=== PATIENT | female | born 1990 | race Caucasian/White ===

== ENCOUNTER → 2018-02-10 18:46 | Outpatient (CLI) | payer OTHER, SELFPAY ==
[2018-02-13 15:36] LABS: HPV Reflexed? NOT INDICATED
== END ==
PROVIDERS: Visit Provider Obstetrics & Gynecology
DX: Z12.4 Encounter for screening for malignant neoplasm of cervix (principal)
CPT/HCPCS: 88175; G0145

== ENCOUNTER → 2019-02-11 | Outpatient (CLI) | payer OTHER, SELFPAY ==
[2019-02-11 17:32] LABS: Free T3 2.9 pg/mL (2.18-3.98); T4 Free Direct 0.88 ng/dL (0.76-1.46); Thyroid Stim Hormone (TSH) 1.61 uIU/mL (0.358-3.74)
[2019-02-16 16:30] LABS: HPV Reflexed? NOT INDICATED
== END | disposition home or self-care (01) ==
LOC: WOBLAB 14:21
PROVIDERS: Visit Provider Obstetrics & Gynecology
DX: R63.5 Abnormal weight gain (principal); Z12.4 Encounter for screening for malignant neoplasm of cervix
CPT/HCPCS: 36415; 84439; 84443; 84481; 87624; 88175; G0145

== ENCOUNTER → 2023-06-09 | Outpatient (CLI) | payer BC, OTHER, SELFPAY ==
--- NOTE | 2023-06-09 15:47 | RAD_ITS ---
STUDY: X-RAY - ABDOMEN/PELVIS REASON FOR EXAM: Female, 32 years old. Kidney stones. Follow-up. TECHNIQUE: Single AP view of the abdomen / pelvis on 3 images. COMPARISON: None. FINDINGS: Normal visualized lung bases. Normal bowel gas pattern. No disproportionate dilatation. Moderate amount of feces in the colon obscuring most of the right renal outline. Small calcifications projected over the lower pole of the left kidney. Normal soft tissue structures. Normal visualized osseous structures. RAD/Abdomen Single View IMPRESSION: Moderate amount of feces obscuring the right renal outline. To small less than 3 mm in diameter calcifications projected over the lower pole of the left kidney. No acute finding. Electronically Signed: Keith Sidhu MD at 12:23 EST ,
== END | disposition home or self-care (01) ==
PROVIDERS: PCP Student in an Organized Health Care Education/Training Program; Referring Provider Urology; Visit Provider Urology
DX: N20.0 Calculus of kidney (principal)
CPT/HCPCS: 74018

== ENCOUNTER 2023-06-19 07:40 | Day surgery (SDC) | payer BC, OTHER, SELFPAY ==
[2023-06-19] MEDS: Lactated Ringers 1,000 ML 15 ML IV (08:08)
[2023-06-19 08:11] VITALS: BP 139/77; PULSE 100; RESP 18; TEMP 36.1; O2SAT 100; BMI 45.9
[2023-06-19 08:16] LABS: Internal QC Validated? YES +Cl - CLEAR BKGD; Pregnancy, Urine Negative Negative; Record Kit Lot#,Urine Preg HCG0000667200
[2023-06-19] MEDS: Cefazolin 2 GM in 0.9% Normal Saline (100mL Bag) 100 ML IV (09:12)
--- NOTE | 2023-06-19 09:16 | DCINST_ITS ---
Discharge Instructions Diet Discharge Diet: No restrictions Activity Discharge Activity: Return to Normal Activity Dressing / Incision Call your doctor if you observe: Fever of 101 or Higher, Inability to urinate and Inability to have a bowel movement Follow Up Care Please Follow Up With: Anna Brown MD When: the office will call the patient to make arrangements for follow up Test Results: Test results from this visit will be discussed in further detail at your follow- up appointment, if applicable. Discharge Plan Admission Attending Provider: Anna Brown Primary Care Provider: Juanjo Woods Discharge Orders/Prescriptions Prescriptions: New ondansetron HCl [ondansetron HCl] 8 mg tablet 8 mg PO Q8H PRN PRN (Reason: Nausea) 7 Days Qty: 20 0RF oxycodone-acetaminophen [Percocet] 5-325 mg tablet 1 tab PO Q8H PRN (Reason: pain) 3 Days Qty: 10 0RF cephalexin [cephalexin] 500 mg capsule 500 mg PO Q12 3 Days Qty: 6 0RF phenazopyridine [Pyridium] 200 mg tablet 200 mg PO TID PRN PRN (Reason: Bladder Spasms) 7 Days Qty: 30 1RF Continued Complete Multivitamin Tablet 1 tab PO DAILY ORTHO TRI-CLYEN 1 tab PO DAILY cholecalciferol (vitamin D3) 1,250 mcg (50,000 unit) capsule 1,250 mcg PO DAILY magnesium 30 mg tablet 30 mg PO DAILY sertraline [Zoloft] 100 mg tablet 100 mg PO DAILY cranberry 400 mg capsule 400 mg PO DAILY Rx Instructions: administer with a meal Referrals / Follow Up: Juanjo Woods DO [Primary Care Provider] - Disposition Disposition (needs filled in before D/C Order can be placed): Home, Self Care
--- NOTE | 2023-06-19 09:19 | PCM.OPRPT ---
Report of Operation Date of Procedure: 06/19/23 Pre-Operative Diagnosis: left renal stones Post-Operative Diagnosis: same Surgery/Procedure Performed:: cystoscopy with left ureteral stent insertion, left renal extracorporeal shockwave lithotripsy Surgeon: Anna Brown Type of Anesthesia: General Specimen's removed: none Description of Procedure: The patient is a 32-year-old female who presented to the office with left flank pain and was found to have left renal stones visible on KUB. Informed consent was obtained and she now presents for definitive surgical intervention. The patient was taken to the operating room and placed on the operating room table. Anesthesia monitored the head, neck, airway, IV access and vital signs throughout the case. Once anesthesia was appropriately ministered, the patient was placed in the dorsolithotomy position was prepped and draped in usual sterile fashion. The cystoscope was inserted through the urethra under direct visualization into the urinary bladder. The bladder mucosa as well as the urethra were found to be within normal limits with no evidence of mass, erythema, ulceration or foreign body. A 0.035 Glidewire was inserted through the left ureteral orifice and easily advanced into the renal pelvis and it was followed by placement of a 4.5 x 26 cm JJ stent. There is good positioning in the renal pelvis as well as urinary bladder. Her bladder was then emptied and the cystoscope was removed. She was repositioned on the table. Her left renal stones were easily visualized and 3000 shocks were applied to the stones which appeared to be well fragmented at the conclusion of the case. She was then awakened and taken to the recovery room in good condition. There were no complications during this procedure. Grafts/Implants Used: 4.5Fr x 26cm JJ stent Complications none Admit VTE Documentation VTE Present on Admission: Yes VTE Mechan Device Prophylaxis: SCD's VTE Pharm Prophylaxis ordered?: No Reason prophylaxis not ordered:: Treatment Not Indicated
[2023-06-19 10:35] VITALS: BP 127/56; BP 139/77; PULSE 86; RESP 18; TEMP 36.2; O2SAT 96
[2023-06-19 10:40] VITALS: BP 120/70; BP 139/77; PULSE 77; RESP 18; O2SAT 93
[2023-06-19 10:45] VITALS: BP 119/69; BP 139/77; PULSE 78; RESP 16; O2SAT 95
[2023-06-19 10:50] VITALS: BP 120/68; BP 139/77; PULSE 78; RESP 18; TEMP 36.1; O2SAT 94
[2023-06-19 12:06] VITALS: BP 139/77
== END 2023-06-19 12:08 | disposition home or self-care (01) ==
LOC: SDC 07:42 → AC 07:45
PROVIDERS: Anesthesiology; PCP Student in an Organized Health Care Education/Training Program; Referring Provider Urology; Visit Provider Urology
PROC: (CPT 50590; principal; 2023-06-19 08:50)
DX: N20.0 Calculus of kidney (principal)
CPT/HCPCS: 50590; 52332; 00873; 81025; J7120; J2405

== ENCOUNTER → 2023-07-04 | Outpatient (CLI) | payer BC, OTHER, SELFPAY ==
--- NOTE | 2023-07-04 09:13 | RAD_ITS ---
INDICATION: KUB- KIDNEY STONES EXAMINATION/TECHNIQUE: X-RAY - XR Abdomen 1 View COMPARISON: 06/09/2023 FINDINGS: BOWEL GAS PATTERN: Non-obstructive. No bowel or stomach distention. FREE AIR: Not assessed on a single supine view. ORGANOMEGALY: Not seen. CALCIFICATIONS: No abnormal calcifications observed, there is obscuring bowel gas.. LEFT ureteral stent projects in normal position. LOWER CHEST: No acute pathology. BONES AND SOFT TISSUES: No acute pathology. RAD/Abdomen Single View IMPRESSION: 1. Obscuring bowel gas, no distinct calcifications noted. 2. LEFT ureteral stent is in normal position. 3. No evidence of bowel obstruction. Electronically Signed: Flo Bravo MD at 21:23 EST ,
== END | disposition home or self-care (01) ==
LOC: MTRAD 09:12
PROVIDERS: PCP Student in an Organized Health Care Education/Training Program; Referring Provider Urology; Visit Provider Urology
DX: N20.0 Calculus of kidney (principal)
CPT/HCPCS: 74018

== ENCOUNTER → 2024-05-03 | Outpatient (CLI) | payer BC, OTHER, SELFPAY ==
--- OUTSIDE RECORDS SUMMARY | 2024-05-03 08:47 | XMS RPT_ITS | CCD ---
Author Organization [facility] Care Team Providers Care Tax Accountant Name Role Phone Cynthia Hughesneha Unavailable Unavailable ROMAR DO, DR ANDERSEN Primary Care Physician [phone] ROMAR DO, DR ANDERSEN Primary Care Unavailable STEVE MURRY, POOL Nguyen Attending Unavailable ROMAR DO, DR ANDERSEN Primary Care Unavailable STEVE MURRY, POOL Nguyen Attending Unavailable ROMAR DO, DR ANDERSEN Primary Care Unavailable FLORENCE BAND BOOKER-MOVEMENT ASSEMBLER, MICAH Ambrose Attending Sacha lable ROMAR DO, DR ADNERSEN Primary Care Unavailable CARISA DO, DR FOOTE Attending Unavailable ROMAR DO, DR ANDERSEN Primary Care Unavailable CARISA DO, DR FOOTE Attending Unavailable ROMAR DO, DR ANDERSEN Primary Care Unavailable STEVE MURRY, POOL Nguyen Attending Unavailable ROMAR DO, DR ANDERSEN Primary Care Unavailable STEVE MURRY, POOL Nguyen Attending Unavailable STEVE MURRY, POOL Nguyen Attending Unavailable ROMAR DO, DR ANDERSEN Primary Care Unavailable ROMAR DO, DR ANDERSEN Primary Care Unavailable STEVE MURRY, POOL A Attending Unavailable STEVE MURRY, POOL Nguyen Attending Unavailable ROMAR DO, DR ANDERSEN Primary Care Unavailable ROMAR DO, DR ANDERSEN Attending Unavailable ROMAR DO, DR ANDERSEN Primary Care Unavailable STEVE MURRY, POOL Nguyen Attending Unavailable ROMAR DO, DR ANDERSEN Primary Care Unavailable Allergies Allergy Classification Reported Allergen(s) Allergy Type Date of Onset Reaction(s) Facility (6 sources) Codeine; Translations: [codeine] Drug Allergy Unknown [facility] Comment on above: hyperactivity (6 sources) Minocycline; Translations: [minocycline] Drug Allergy Abdominal pain (finding) [facility] Medications Current Medications Medication Drug Class(es) Dates Sig (Normalized) Sig (Original) amylase 781105 unt / lipase 25139 unt / protease [id number] unt delayed release oral capsule (1 source) Start: 04-19-2023 Zenpep 40,000 units-126,000 units-168,000 units oral delayed release capsule take 2 capsules by mouth three times a day before meals and 1 capsule BEFORE SNACKS Start Date: 04/19/23 Status: Ordered ferrous gluconate 324 mg oral tablet (1 source) Start: 12-10-2023 End: 02-08-2024 ferrous gluconate 324 mg (38 mg elemental iron) oral tablet Dose : 324 mg = 1 tab(s), Oral, Every other day, X 30 day(s), # 15 tab(s), 1 Refill(s), 02/08/24 3:49:00 PM EDT, [facility]acy: [facility] #[id number], 165.1, cm, 12/10/23 15:08:00 EDT, Height, kg, 12/10/23 15:08:00 EDT, Dosing Weight Start Date: 12/10/23 Stop Date: 02/08/24 Status: Ordered ferrous sulfate 325 mg oral tablet (1 source) Start: 08-11-2023 End: 12-09-2023 IRON (ferrous sulfate 325 mg) 65 mg oral tablet Dose : 325 mg = 1 tab(s), Oral, Every other day, Take with Vitamin C tablet or orange juice., # 15 tab(s), 3 Refill(s), [facility]acy: [facility] #[id number], 165.1, cm, 08/11/23 8:24:00 EST, Height, kg, 08/11/23 8:24:00 EST, Dosing Weight Start Date: 08/11/23 Stop Date: 12/09/23 Status: Ordered magnesium oxide 250 mg oral tablet (4 sources) Start: 08-11-2023 Magnesium 250 mg tablet Dose : 250 mg = 1 tab(s), Oral, qDay, 0 Refill(s) Start Date: 08/11/23 Status: Ordered Multivitamin preparation (4 sources) Start: 08-11-2023 take 1 tablet by mouth once daily Multivitamin Dose = 1 tab(s), Oral, Daily, 0 Refill(s) Start Date: 08/11/23 Status: Ordered sertraline 100 mg oral tablet (6 sources) Serotonin Reuptake Inhibitor Start: 11-28-2023 End: 06-15-2024 sertraline 100 mg oral tablet Dose : 100 mg = 1 tab(s), Oral, qDay, # 100 tab(s), 1 Refill(s), [facility]: [facility] #[id number], 163.8, cm, 11/28/23 16:36:00 EDT, Height, kg, 11/28/23 16:36:00 EDT, Dosing Weight Start Date: 11/28/23 Stop Date: 06/15/24 Status: Ordered Start: 04-24-2023 End: 10-21-2023 sertraline 100 mg oral table t Dose : 100 mg = 1 tab(s), Oral, qDay, # 90 tab(s), 1 Refill(s), Pharmacy: [facility] #[id number], 165.3, cm, 04/24/23 8:00:00 EDT, Height, kg, 04/24/23 8:00:00 EDT, Dosing Weight Start Date: 04/24/23 Stop Date: 10/21/23 Status: Ordered Start: 10-24-2022 End: 04-22-2023 sertraline 100 mg oral table t Dose : 100 mg = 1 tab(s), Oral, qDay, # 90 tab(s), 1 Refill(s), Pharmacy: [facility] #[id number], 165, cm, 10/24/22 7:55:00 EDT, Height, kg, 10/24/22 7:55:00 EDT, Dosing Weight Start Date: 10/24/22 Stop Date: 04/22/23 Status: Ordered Completed/Discontinued Medications Medication Drug Class(es) Dates Sig (Normalized) Sig (Original) {21 (Desogestrel 0.15 MG / Ethinyl Estradiol 0.03 MG Oral Tablet) / 7 (Inert Ingredients 1 MG Oral Tablet) } Pack [Enskyce 28 Day] (6 sources) Progestin, Estrogen Start: 03-19-2022 take 1 tablet by mouth once daily Enskyce 0.15 mg-0.03 mg oral tablet Dose = 1 tab(s), Oral, qDay, # 28 tab(s), 0 Refill(s) Start Date: 03/19/22 Status: Ordered eluxadoline 75 mg oral tablet (3 sources) mu-Opioid Receptor Agonist Start: 11-03-2023 Viberzi 75 mg oral tablet Dose : 75 mg = 1 tab(s), Oral, BID, 0 Refill(s), 125.1 Start Date: 11/03/23 Status: Ordered Vitamin B12 1000 mcg oral tablet (4 sources) Start: 08-11-2023 End: 12-09-2023 Vitamin B12 1000 mcg oral tablet Dose : 2,000 mcg = 2 tab(s), Oral, qDay, # 60 tab(s), 3 Refill(s), Pharmacy: [facility] #[id number], 165.1, cm, 08/11/23 8:24:00 EST, Height, kg, 08/11/23 8:24:00 EST, Dosing Weight Start Date: 08/11/23 Stop Date: 12/09/23 Status: Ordered Problems Active Problems Problem Classification Problem Date Documented Date Episodic/Chronic Anxiety disorders (12 sources) Generalized anxiety disorder; Translations: [Panic attack] 06-01-2020 Chronic Cardiac dysrhythmias (6 sources) Palpitations 01-17-2021 Episodic Contraceptive and procreative management (6 sources) Contraception 09-13-2021 Episodic Deficiency and other anemia (6 sources) Microcytic anemia 10-24-2022 Episodic Deficiency and other anemia (6 sources) Normocytic anemia 06-06-2021 Episodic Deficiency and other anemia (1 source) Anemia; Translations: [Anemia, unspecified] Onset: 12-10-19 Episodic Diseases of white blood cells (8 sources) Leukocytosis; Translations: [Elevated white blood cell count, unspecified] Onset: 08-11-1906-06-2021 Chronic Disorders of lipid metabolism (6 sources) Hypertriglyceridemia 10-24-2022 Chronic Heart valve disorders (6 sources) Mitral valve prolapse 01-17-2021 Chronic Other gastrointestinal disorders (8 sources) Irritable bowel syndrome; Translations: [Irritable bowel syndrome without diarrhea] Onset: 08-11-1912-29-2019 Chronic Other lower respiratory disease (6 sources) H/O: asthma 12-29-2019 Episodic Comment on above: per record review Other nutritional; endocrine; and metabolic disorders (6 sources) Body mass index 40+ - severely obese 12-12-2020 Chronic Other skin disorders (5 sources) Skin tag 05-15-2023 Episodic Other upper respiratory disease (6 sources) Allergic rhinitis 12-29-2019 Chronic Cristina-; endo-; and myocarditis; cardiomyopathy (except that caused by tuberculosis or sexually transmitted disease) (6 sources) Ejection murmur 12-12-2020 Chronic Screening and history of mental health and substance abuse codes (6 sources) H/O: depression 12-29-2019 Episodic Comment on above: per record review Thyroid disorders (6 sources) Goiter 12-12-2020 Chronic Unclassified (1 source) Unknown / UNK(Unknown) Onset: 01-31-20 18 Past or Other Problems Problem Classification Problem Date Documented Date Episodic/Chronic Genitourinary symptoms and ill-defined conditions (2 sources) Unspecified symptoms and signs involving the genitourinary system; Translations: [Unspecified symptoms and signs involving the genitourinary system] Onset: 04-19-2023 Episodic Unclassified (1 source) URINARY BURNING,PRESSURE Onset: 01-30-2018 Results Test Name Value Interpretation Reference Range Facility .Auto Diffon 03-19-2024 Basophil, Absolute 0.1 10 3/mcL Normal 0.0-0.2 [facility] Comment on above: Performed By: #### A ISAIAS, ADIFF, FERR, CBC, FES #### [address] [address] #### B12 #### [address] [address] Basophils/100 WBC (Bld) 0.5 % Normal 0.0-2.5 [facility] Comment on above: Performed By: #### A ISAIAS, ADIFF, FERR, CBC, FES #### [address] [address] #### B12 #### [address] [address] Eosinophil, Absolute 0.3 10 3/mcL Normal 0.0-0.4 [facility] Comment on above: Performed By: #### A ISAIAS, ADIFF, FERR, CBC, FES #### [address] [address] #### B12 #### [address] [address] Eosinophils/100 WBC (Bld) 2.6 % Normal 0.0-7.0 [facility] Comment on above: Performed By: #### A ISAIAS, ADIFF, FERR, CBC, FES #### [address] [address] #### B12 #### [address] [address] Lymphocyte, Absolute 3.5 10 3/mcL Normal 0.8-3.9 [facility] Comment on above: Performed By: #### A ISAIAS, ADIFF, FERR, CBC, FES #### [place] [address] #### B12 #### [address] [address] Lymphocytes/100 WBC (Bld) 32.5 % Normal 10.0-50.0 [facility] Comment on above: Performed By: #### A ISAIAS, ADIFF, FERR, CBC, FES #### [place] [address] #### B12 #### [address] [address] Monocyte, Absolute 0.8 10 3/mcL Normal 0.2-1.0 [facility] Comment on above: Performed By: #### A ISAIAS, ADIFF, FERR, CBC, FES #### [place] [address] #### B12 #### [address] [address] Monocytes/100 WBC (Bld) 7.2 % Normal 1.7-13.0 [facility] Comment on above: Performed By: #### A ISAIAS, ADIFF, FERR, CBC, FES #### [place] [address] #### B12 #### [address] [address] Neutrophils/100 WBC (Bld) 57.2 % Normal 37.0-80.0 [facility] Comment on above: Performed By: #### A ISAIAS, ADIFF, FERR, CBC, FES #### [place] [address] [place], [place] [address] #### B12 #### [address] [address] .GFRon 03-19-2024 GFR Non- 104 ml/min/1.73sqm Normal [facility] Comment on above: Result Comment: GFR Population mean for , Non- Americans Ages 20-29 = 116 mL/min/1.73 sq.m. Ages 30-39 = 107 mL/min/1.73 sq.m. Ages 40-49 = 99 mL/min/1.73 sq.m. Ages 50-59 = 93 mL/min/1.73 sq.m. Ages 60-69 = 85 mL/min/1.73 sq.m. Ages 70+ = 75 mL/min/1.73 sq.m. Chronic Kidney Disease: Less than 60 mL/min/1.73 square meters End Stage Renal Disease: Less than 15 mL/min/1.73 square meters Performed By: #### L IPID, GFR, CMP #### [address] [address] GFR 126 ml/min/1.73sqm Normal [facility] Comment on above: Result Comment: GFR Population mean for , Non- Americans Ages 20-29 = 116 mL/min/1.73 sq.m. Ages 30-39 = 107 mL/min/1.73 sq.m. Ages 40-49 = 99 mL/min/1.73 sq.m. Ages 50-59 = 93 mL/min/1.73 sq.m. Ages 60-69 = 85 mL/min/1.73 sq.m. Ages 70+ = 75 mL/min/1.73 sq.m. Chronic Kidney Disease: Less than 60 mL/min/1.73 square meters End Stage Renal Disease: Less than 15 mL/min/1.73 square meters Performed By: #### L IPID, GFR, CMP #### [place] [id number] [place], [place] [address] .NEUABSon 03-19-2024 Neutrophil, Absolute 6.2 10 3/mcL Normal 2.9-6.2 [facility] Comment on above: Performed By: #### A ISAIAS, ADIFF, FERR, CBC, FES #### [address] [address] #### B12 #### [address] [address] B12on 03-19-2024 Cobalamin (Vitamin B12) [Mass/Vol] 265 pg/mL Normal 211-911 [facility] Comment on above: Performed By: #### A ISAIAS, ADIFF, FERR, CBC, FES #### [place] [address] #### B12 #### [place] [address] CBCon 03-19-2024 Erythrocyte distribution width (RBC) [Ratio] 15.6 % High 11.5-14.5 [facility] Comment on above: Performed By: #### A ISAIAS, ADIFF, FERR, CBC, FES #### [place] [address] #### B12 #### [place] [address] Hematocrit (Bld) [Volume fraction] 33.7 % Low 37.0-47.0 [facility] Comment on above: Performed By: #### A ISAIAS, ADIFF, FERR, CBC, FES #### [place] [address] #### B12 #### [place] [address] Hgb 11.2 G/dL Low 12.0-16.0 [facility] Comment on above: Performed By: #### A ISAIAS, ADIFF, FERR, CBC, FES #### [place] [address] #### B12 #### [place] [address] MCH (RBC) [Entitic mass] 27.6 pg Normal 27.0-31.2 [facility] Comment on above: Performed By: #### A ISAIAS, ADIFF, FERR, CBC, FES #### [place] [address] #### B12 #### [place] [address] MCHC 33.2 G/dL Normal 33.0-37.0 [facility] Comment on above: Performed By: #### A ISAIAS, ADIFF, FERR, CBC, FES #### [place] [address] #### B12 #### [place] [address] MCV (RBC) [Entitic vol] 83.2 fL Normal 80.0-94.0 [facility] Comment on above: Performed By: #### A ISAIAS, ADIFF, FERR, CBC, FES #### [place] [address] #### B12 #### [place] [address] Platelet 284 10 3/mcL Normal 130-400 [facility] Comment on above: Performed By: #### A ISAIAS, ADIFF, FERR, CBC, FES #### [place] [address] #### B12 #### [place] [address] Platelet mean volume (Bld) [Entitic vol] 8.6 fL Normal 7.4-10.4 [facility] Comment on above: Performed By: #### A ISAIAS, ADIFF, FERR, CBC, FES #### [place] [address] #### B12 #### [place] [address] RBC 4.05 10 6/mcL Low 4.20-5.40 [facility] Comment on above: Performed By: #### A ISAIAS, ADIFF, FERR, CBC, FES #### [place] [address] #### B12 #### [address] [address] WBC 10.8 10 3/mcL Normal 4.6-10.8 [facility] Comment on above: Performed By: #### A ISAIAS, SIDNEY, FERR, CBC, FES #### [address] [address] #### B12 #### [address] [address] CMPon 03-19-2024 Albumin Level 3.0 G/dL Low 3.5-5.0 [facility] Comment on above: Performed By: #### L IPID, GFR, CMP #### [address] [address] Albumin/Globulin [Mass ratio] 1.1 {ratio} Normal 1.1-2.5 [facility] Comment on above: Performed By: #### L IPID, GFR, CMP #### [place] [id number] ALP [Catalytic activity/Vol] 66 U/L Normal 40-135 [facility] Comment on above: Performed By: #### L IPID, GFR, CMP #### [place] [address] ALT [Catalytic activity/Vol] 18 U/L Normal 14-59 [facility] Comment on above: Performed By: #### L IPID, GFR, CMP #### [address] [address] AST [Catalytic activity/Vol] 10 U/L Normal 10-40 [facility] Comment on above: Performed By: #### L IPID, GFR, CMP #### [address] [address] Bili Total 0.2 mg/dL Normal 0.2-1.0 [facility] Comment on above: Result Comment: Use of this assay is not recommended for patients undergoing treatment with eltrombopag due to the potential for falsely elevated results. Performed By: #### L IPID, GFR, CMP #### [place] [id number] BUN/Creatinine Ratio 11 ratio Normal 7-27 [facility] Comment on above: Performed By: #### L IPID, GFR, CMP #### [place] [address] Calcium [Mass/Vol] 8.7 mg/dL Normal 8.4-10.2 [facility] Comment on above: Performed By: #### L IPID, GFR, CMP #### [place] [address] Chloride [Moles/Vol] 103 mmol/L Normal 98-107 [facility] Comment on above: Performed By: #### L IPID, GFR, CMP #### [place] [address] CO2 [Moles/Vol] 25 mmol/L Normal 22-29 [facility] Comment on above: Performed By: #### L IPID, GFR, CMP #### [place] [address] Creatinine [Mass/Vol] 0.65 mg/dL Normal 0.55-1.02 [facility] Comment on above: Result Comment: Test ing performed on Siemens Dimension EXL analyzer using a modified kinetic Kathya technique. Performed By: #### L IPID, GFR, CMP #### [place] [address] Electrolyte Balance 10.0 mEq/L Normal 4.0-15.0 [facility] Comment on above: Performed By: #### L IPID, GFR, CMP #### [place] [address] Globulin 2.8 G/dL Normal [facility] Comment on above: Performed By: #### L IPID, GFR, CMP #### [place] [address] Glucose [Mass/Vol] 110 mg/dL High 70-105 [facility] Comment on above: Performed By: #### L IPID, GFR, CMP #### [address] [address] Potassium [Moles/Vol] 4.4 mmol/L Normal 3.5-5.1 [facility] Comment on above: Performed By: #### L IPID, GFR, CMP #### [address] [address] Sodium [Moles/Vol] 138 mmol/L Normal 136-145 [facility] Comment on above: Performed By: #### L IPID, GFR, CMP #### [address] [address] Total Protein 5.8 G/dL Low 6.4-8.2 [facility] Comment on above: Performed By: #### L IPID, GFR, CMP #### [address] [address] Urea nitrogen [Mass/Vol] 7 mg/dL Normal 7-18 [facility] Comment on above: Performed By: #### L IPID, GFR, CMP #### [address] [address] Kale 03-19-2024 Ferritin [Mass/Vol] 40.0 ng/mL Normal 8.0-252.0 [facility] Comment on above: Performed By: #### A ISAIAS, ADIFF, FERR, CBC, FES #### [address] [address] #### B12 #### [address] [address] FESon 03-19-2024 Iron [Mass/Vol] 43 ug/dL Low 50-170 [facility] Comment on above: Performed By: #### A ISAIAS, ADIFF, FERR, CBC, FES #### [address] [address] #### B12 #### [address] [address] Iron Sat 12 % Normal [facility] Comment on above: Performed By: #### A ISAIAS, ADIFF, FERR, CBC, FES #### [address] [address] #### B12 #### [address] [address] TIBC 368 mcg/dL Normal 250-450 [facility] Comment on above: Performed By: #### A ISAIAS, ADIFF, FERR, CBC, FES #### [address] [address] #### B12 #### [address] [address] LABORATORYOrdered By: SYSTEM SYSTEM on 03-19-2024 Albumin BCP dye [Mass/Vol] 3.0 G/dL Low 3.5 - 5.0 G/dL AO ADM SS Albumin/Globulin [Mass ratio] 1.1 {ratio} Normal 1.1 - 2.5 ratio AO ADM SS ALP [Catalytic activity/Vol] 66 U/L Normal 40 - 135 U/L AO ADM SS ALT With P-5'-P [Catalytic activity/Vol] 18 U/L Normal 14 - 59 U/L AO ADM SS AST With P-5'-P [Catalytic activity/Vol] 10 U/L Normal 10 - 40 U/L AO ADM SS Basophils (Bld) [#/Vol] 0.1 103/mcL Normal 0.0 - 0.2 10^3/mcL AO Workflow SS Basophils/100 WBC (Bld) 0.5 % Normal 0.0 - 2.5 % AO Workflow SS Bilirubin [Mass/Vol] 0.2 mg/dL Normal 0.2 - 1 .0 mg/dL AO ADM SS Comment on above: Interpretive Data: U se of this assay is not recommended for patients undergoing treatment with eltrombopag due to the potential for falsely elevated results. Calcium [Mass/Vol] 8.7 mg/dL Normal 8.4 - 10. 2 mg/dL AO ADM SS Chloride [Moles/Vol] 103 mmol/L Normal 98 - 10 7 mmol/L AO ADM SS CO2 [Moles/Vol] 25 mmol/L Normal 22 - 29 mmol/L AO ADM SS Cobalamin (Vitamin B12) [Mass/Vol] 265 pg/mL Normal 211 - 911 pg/mL AH ADM SS Creatinine [Mass/Vol] 0.65 mg/dL Normal 0.55 - 1.02 mg/dL AO ADM SS Comment on above: Interpretive Data: T esting performed on Siemens Dimension EXL analyzer using a modified kinetic Kathya technique. Electrolyte Balance 10.0 mEq/L Normal 4.0 - 15 .0 mEq/L AO ADM SS Eosinophil, Absolute 0.3 103/mcL Normal 0.0 - 0 .4 10^3/mcL AO Workflow SS Eosinophils/100 WBC (Bld) 2.6 % Normal 0.0 - 7.0 % AO Workflow SS Erythrocyte distribution width (RBC) [Ratio] 15.6 % High 11.5 - 14.5 % AO Workflow SS Ferritin [Mass/Vol] 40.0 ng/mL Normal 8.0 - 25 2.0 ng/mL AO ADM SS GFR/1.73 sq M.predicted among blacks MDRD (S/P/Bld) [Vol rate/Area] 126 ml/min/1.73sqm Invalid Interpretation Code AO Chemistry S Comment on above: Interpretive Data: GFR Population mean for , Non- Americans Ages 20-29 = 116 mL/min/1.73 sq.m. Ages 30-39 = 107 mL/min/1.73 sq.m. Ages 40-49 = 99 mL/min/1.73 sq.m. Ages 50-59 = 93 mL/min/1.73 sq.m. Ages 60-69 = 85 mL/min/1.73 sq.m. Ages 70+ = 75 mL/min/1.73 sq.m. Chronic Kidney Disease: Less than 60 mL/min/1.73 square meters End Stage Renal Disease: Less than 15 mL/min/1.73 square meters GFR/1.73 sq M.predicted among non-blacks MDRD (S/P/Bld) [Vol rate/Area] 104 ml/min/1.73sqm Invalid Interpretation Code AO Chemistry S Comment on above: Interpretive Data: GFR Population mean for , Non- Americans Ages 20-29 = 116 mL/min/1.73 sq.m. Ages 30-39 = 107 mL/min/1.73 sq.m. Ages 40-49 = 99 mL/min/1.73 sq.m. Ages 50-59 = 93 mL/min/1.73 sq.m. Ages 60-69 = 85 mL/min/1.73 sq.m. Ages 70+ = 75 mL/min/1.73 sq.m. Chronic Kidney Disease: Less than 60 mL/min/1.73 square meters End Stage Renal Disease: Less than 15 mL/min/1.73 square meters Globulin 2.8 G/dL Invalid Interpretation Code AO ADM SS Glucose [Mass/Vol] 110 mg/dL High 70 - 105 mg/dL AO ADM SS Hematocrit (Bld) [Volume fraction] 33.7 % Low 37.0 - 47.0 % AO Workflow SS Hemoglobin (Bld) [Mass/Vol] 11.2 G/dL Low 12.0 - 16.0 G/dL AO Workflow SS Iron [Mass/Vol] 43 ug/dL Low 50 - 170 mcg/dL AO ADM SS Iron binding capacity [Mass/Vol] 368 mcg/dL Normal 250 - 450 mcg/dL AO ADM SS Iron Sat 12 % Invalid Interpretation Code AO ADM SS Lymphocytes (Bld) [#/Vol] 3.5 103/mcL Normal 0.8 - 3.9 10^3/mcL AO Workflow SS Lymphocytes/100 WBC (Bld) 32.5 % Normal 10.0 - 50.0 % AO Workflow SS MCH (RBC) [Entitic mass] 27.6 pg Normal 27.0 - 31.2 pg AO Workflow SS MCHC 33.2 G/dL Normal 33.0 - 37.0 G/dL AO Workflow SS MCV (RBC) [Entitic vol] 83.2 fL Normal 80.0 - 94.0 fL AO Workflow SS Monocytes (Bld) [#/Vol] 0.8 103/mcL Normal 0.2 - 1.0 10^3/mcL AO Workflow SS Monocytes/100 WBC (Bld) 7.2 % Normal 1.7 - 13.0 % AO Workflow SS Neutrophils (Bld) [#/Vol] 6.2 103/mcL Normal 2.9 - 6.2 10^3/mcL AO Workflow SS Neutrophils/100 WBC (Bld) 57.2 % Normal 37.0 - 80.0 % AO Workflow SS Platelet mean volume (Bld) [Entitic vol] 8.6 fL Normal 7.4 - 10.4 fL AO Workflow SS Platelets (Bld) [#/Vol] 284 103/mcL Normal 130 - 400 10^3/mcL AO Workflow SS Potassium [Moles/Vol] 4.4 mmol/L Normal 3.5 - 5.1 mmol/L AO ADM SS Protein [Mass/Vol] 5.8 G/dL Low 6.4 - 8.2 G/dL AO ADM SS RBC (Bld) [#/Vol] 4.05 106/mcL Low 4.20 - 5.4 0 10^6/mcL AO Workflow SS Sodium [Moles/Vol] 138 mmol/L Normal 136 - 145 mmol/L AO ADM SS Urea nitrogen [Mass/Vol] 7 mg/dL Normal 7 - 18 mg/dL AO ADM SS Urea nitrogen/Creatinine [Mass ratio] 11 ratio Normal 7 - 27 ratio AO ADM SS WBC (Bld) [#/Vol] 10.8 103/mcL Normal 4.6 - 10.8 10^3/mcL AO Workflow SS LABORATORYOrdered By: Terri Mcmullen on 03-19-2024 Cholesterol [Mass/Vol] 118 mg/dL Normal 0 - 200 mg/dL AO ADM SS Comment on above: Interpretive Data: C holesterol Reference Interval: Less than 200 Desirable 200-239 Borderline high risk 240 and above High risk Cholesterol in HDL [Mass/Vol] 46 mg/dL Normal 40 - 60 mg/dL AO ADM SS Cholesterol in LDL [Mass/Vol] 49 mg/dL Normal 0 - 130 mg/dL AO ADM SS Triglyceride [Mass/Vol] 117 mg/dL Normal 0 - 150 mg/dL AO ADM SS Comment on above: Interpretive Data: T riglyceride Reference Interval: Less than 150 Normal 150-199 Borderline high risk 200-499 High risk 500 or higher Very high risk LIPIDon 03-19-2024 Cholesterol [Mass/Vol] 118 mg/dL Normal 0-200 [facility] Comment on above: Result Comment: Chol esterol Reference Interval: Less than 200 Desirable 200-239 Borderline high risk 240 and above High risk Performed By: #### L IPID, GFR, CMP #### [address] [address] Cholesterol in HDL [Mass/Vol] 46 mg/dL Normal 40-60 [facility] Comment on above: Performed By: #### L IPID, GFR, CMP #### [place] [id number] [place], [place] [address] Cholesterol in LDL [Mass/Vol] 49 mg/dL Normal 0-130 [facility] Comment on above: Performed By: #### L IPID, GFR, CMP #### [facility] [address] [place], [place] [address] Triglyceride [Mass/Vol] 117 mg/dL Normal 0-150 [facility] Comment on above: Result Comment: Trig lyceride Reference Interval: Less than 150 Normal 150-199 Borderline high risk 200-499 High risk 500 or higher Very high risk Performed By: #### L IPID, GFR, CMP #### [facility] [address] [place], [place] [address] Final Flow Cytometry Reporto n 12-11-2023 Final Flow Cytometry Report . Pathology Reports Accession: Collected Date/Time: Received Date/Time: Pathologist: [id number] 12/10/2023 16:17 EDT 12/11/2023 09:46 EDT MD ANTONELLA CAMACHO Final Flow Cytometry Report INTERPRETATION: NO ABNORMAL LYMPHOID OR MYELOID POPULATION SEEN. FLOW CYTOMETRIC ANALYSIS IS NONDIAGNOSTIC. FLOW CYTOMETRY ANALYSIS PHENOTYPE: Phenotype: There is a mixed population of myeloid cells (66% of total) and T and B-cells. B-cells (5% of total) are polytypic and T-cells account for 29%. TEST RESULTS: sKappa B CELLS sLambda B CELLS HLA-DR LEUKOCYTES CD5 T CELLS CD10 LYMPHOCYTES CD11c MONOCYTES CD13 MYELOID CELLS CD14 MONOCYTES CD15 MYELOID CELLS CD19 B-CELLS CD33 MYELOID CELLS CD34 BLAST CELLS CD45 LEUKOCYTES CD64 MYELOID CELLS CD117 MYELOID CELLS CLINICAL DATA: ELEVATED WHITE BLOOD CELL COUNT, IRON DEFICIENCY ANEMIA SPECIMEN DESCRIPTION: PERIPHERAL WHOLE BLOOD NA Heparin Tube PATH PROF CPT: 88493 Testing performed by MM DISCLAIMER: This test was developed and its performance approved by [facility]. It has not been cleared or approved by the U.S. Food and Drug Administration. The FDA has determined that such clearance or approval is not necessary. This test is used for clinical purposes. It should not be regarded as investigational or for research. This laboratory is certified under the Clinical Laboratory Improvement Amendments of 1998 (CLIA-88) as qualified to perform high complexity clinical laboratory testing. Electronically Signed by Pathology Report verified by [facility] ANTONELLA CAMACHO MD Sign out Date: 12/11/2023 11:23 Performing Lab: [facility], [address] [place] [address] Pathology Dept Normal [facility] ([place]) .Auto Diffon 11-28-2023 Basophil, Absolute 0.1 10 3/mcL Normal 0.0-0.2 [facility] ([place]) Comment on above: Performed By: #### B 12, FES, FERR, FOL #### [address] [address] Basophils/100 WBC (Bld) 0.6 % Normal 0.0-2.5 [facility] ([place]) Comment on above: Performed By: #### B 12, FES, FERR, FOL #### [address] [address] Eosinophil, Absolute 0.3 10 3/mcL Normal 0.0-0.4 [facility] ([place]) Comment on above: Performed By: #### B 12, FES, FERR, FOL #### [address] [address] Eosinophils/100 WBC (Bld) 2.2 % Normal 0.0-7.0 [facility] ([place]) Comment on above: Performed By: #### B 12, FES, FERR, FOL #### [address] [address] Lymphocyte, Absolute 5.2 10 3/mcL High 0.8-3.9 [facility] ([place]) Comment on above: Performed By: #### B 12, FES, FERR, FOL #### [address] [address] Lymphocytes/100 WBC (Bld) 37.7 % Normal 10.0-50.0 [facility] ([place]) Comment on above: Performed By: #### B 12, FES, FERR, FOL #### [address] [address] Monocyte, Absolute 0.9 10 3/mcL Normal 0.2-1.0 [facility] ([place]) Comment on above: Performed By: #### B 12, FES, FERR, FOL #### [address] [address] Monocytes/100 WBC (Bld) 6.5 % Normal 1.7-13.0 [facility] ([place]) Comment on above: Performed By: #### B 12, FES, FERR, FOL #### [place] [id number] Neutrophils/100 WBC (Bld) 53.0 % Normal 37.0-80.0 [facility] ([place]) Comment on above: Performed By: #### B 12, FES, FERR, FOL #### [place] [address] .NEUABSon 11-28-2023 Neutrophil, Absolute 7.3 10 3/mcL High 2.9-6.2 [facility] ([place]) Comment on above: Performed By: #### B 12, FES, FERR, FOL #### [place] [address] B12on 11-28-2023 Cobalamin (Vitamin B12) [Mass/Vol] 362 pg/mL Normal 211-911 [facility] ([place]) Comment on above: Performed By: #### B 12, FES, FERR, FOL #### [place] [address] CBCon 11-28-2023 Erythrocyte distribution width (RBC) [Ratio] 16.1 % High 11.5-14.5 [facility] ([place]) Comment on above: Performed By: #### B 12, FES, FERR, FOL #### [place] [address] Hematocrit (Bld) [Volume fraction] 35.0 % Low 37.0-47.0 [facility] ([place]) Comment on above: Performed By: #### B 12, FES, FERR, FOL #### [place] [address] Hgb 12.0 G/dL Normal 12.0-16.0 [facility] ([place]) Comment on above: Performed By: #### B 12, FES, FERR, FOL #### [place] [address] MCH (RBC) [Entitic mass] 27.4 pg Normal 27.0-31.2 [facility] ([place]) Comment on above: Performed By: #### B 12, FES, FERR, FOL #### [place] [address] MCHC 34.3 G/dL Normal 33.0-37.0 [facility] ([place]) Comment on above: Performed By: #### B 12, FES, FERR, FOL #### [place] [address] MCV (RBC) [Entitic vol] 79.9 fL Low 80.0-94.0 [facility] ([place]) Comment on above: Performed By: #### B 12, FES, FERR, FOL #### [place] [address] Platelet 327 10 3/mcL Normal 130-400 [facility] ([place]) Comment on above: Performed By: #### B 12, FES, FERR, FOL #### [place] [address] Platelet mean volume (Bld) [Entitic vol] 8.6 fL Normal 7.4-10.4 [facility] ([place]) Comment on above: Performed By: #### B 12, FES, FERR, FOL #### [place] [address] RBC 4.38 10 6/mcL Normal 4.20-5.40 [facility] ([place]) Comment on above: Performed By: #### B 12, FES, FERR, FOL #### [place] [address] WBC 13.8 10 3/mcL High 4.6-10.8 [facility] ([place]) Comment on above: Performed By: #### B 12, FES, FERR, FOL #### [place] [address] Kale 11-28-2023 Ferritin [Mass/Vol] 44.0 ng/mL Normal 8.0-252.0 [facility] ([place]) Comment on above: Performed By: #### B 12, FES, FERR, FOL #### [place] [address] FESon 11-28-2023 Iron [Mass/Vol] 37 ug/dL Low 50-170 [facility] ([place]) Comment on above: Performed By: #### B 12, FES, FERR, FOL #### [place] [address] Iron Sat 9 % Normal [facility] ([place]) Comment on above: Performed By: #### B 12, FES, FERR, FOL #### [place] [address] TIBC 417 mcg/dL Normal 250-450 [facility] ([place]) Comment on above: Performed By: #### B 12, FES, FERR, FOL #### [place] [address] B12on 08-11-2023 Cobalamin (Vitamin B12) [Mass/Vol] 194 pg/mL Low 211-911 [facility] ([place]) Comment on above: Performed By: #### B 12, FES, FERR, FOL #### [place] [address] Kale 08-11-2023 Ferritin [Mass/Vol] 23.2 ng/mL Normal 8.0-252.0 [facility] ([place]) Comment on above: Performed By: #### B 12, FES, FERR, FOL #### [place] [address] FESon 08-11-2023 Iron [Mass/Vol] 46 ug/dL Low 50-170 [facility] ([place]) Comment on above: Performed By: #### B 12, FES, FERR, FOL #### [place] [address] Iron Sat 12 % Normal [facility] ([place]) Comment on above: Performed By: #### B 12, FES, FERR, FOL #### [place] [address] TIBC 391 mcg/dL Normal 250-500 [facility] ([place]) Comment on above: Performed By: #### B 12, FES, FERR, FOL #### [place] [address] FOLon 08-11-2023 Folate 19.92 ng/mL Normal 5.38-24.00 [facility] ([place]) Comment on above: Performed By: #### B 12, FES, FERR, FOL #### [address] [address] LABORATORYOrdered By: SYSTEM SYSTEM on 08-11-2023 Cobalamin (Vitamin B12) [Mass/Vol] 194 pg/mL Low 211 - 911 pg/mL [facility] Ferritin [Mass/Vol] 23.2 ng/mL Normal 8.0 - 25 2.0 ng/mL ADM SS Folate [Mass/Vol] 19.92 ng/mL Normal 5.38 - 24. 00 ng/mL [facility] SS Iron [Mass/Vol] 46 ug/dL Low 50 - 170 mcg/dL [facility] SS Iron binding capacity [Mass/Vol] 391 mcg/dL Normal 250 - 500 mcg/dL [facility] SS Iron saturation [Mass fraction] 12 % Invalid Interpretation Code ADM SS .Auto Diffon 08-06-2023 Basophil, Absolute 0.1 10 3/mcL Normal 0.0-0.2 [facility] ([place]) Comment on above: Performed By: #### B 12, FES, FERR, FOL #### [address] [address] Basophils/100 WBC (Bld) 0.5 % Normal 0.0-2.5 [facility] ([place]) Comment on above: Performed By: #### B 12, FES, FERR, FOL #### [address] [address] Eosinophil, Absolute 0.3 10 3/mcL Normal 0.0-0.4 [facility] ([place]) Comment on above: Performed By: #### B 12, FES, FERR, FOL #### [address] [address] Eosinophils/100 WBC (Bld) 2.8 % Normal 0.0-7.0 [facility] ([place]) Comment on above: Performed By: #### B 12, FES, FERR, FOL #### [address] [address] Lymphocyte, Absolute 4.1 10 3/mcL High 0.8-3.9 [facility] ([place]) Comment on above: Performed By: #### B 12, FES, FERR, FOL #### [address] [address] Lymphocytes/100 WBC (Bld) 34.8 % Normal 10.0-50.0 [facility] ([place]) Comment on above: Performed By: #### B 12, FES, FERR, FOL #### [address] [address] Monocyte, Absolute 0.8 10 3/mcL Normal 0.2-1.0 [facility] ([place]) Comment on above: Performed By: #### B 12, FES, FERR, FOL #### [address] [address] Monocytes/100 WBC (Bld) 6.6 % Normal 1.7-13.0 [facility] ([place]) Comment on above: Performed By: #### B 12, FES, FERR, FOL #### [address] [address] Neutrophils/100 WBC (Bld) 55.3 % Normal 37.0-80.0 [facility] ([place]) Comment on above: Performed By: #### B 12, FES, FERR, FOL #### [address] [address] .NEUABSon 08-06-2023 Neutrophil, Absolute 6.5 10 3/mcL High 2.9-6.2 [facility] ([place]) Comment on above: Performed By: #### B 12, FES, FERR, FOL #### [address] [address] CBCon 08-06-2023 Erythrocyte distribution width (RBC) [Ratio] 16.2 % High 11.5-14.5 [facility] ([place]) Comment on above: Performed By: #### B 12, FES, FERR, FOL #### [address] [address] Hematocrit (Bld) [Volume fraction] 34.8 % Low 37.0-47.0 [facility] ([place]) Comment on above: Performed By: #### B 12, FES, FERR, FOL #### [address] [address] Hgb 11.6 G/dL Low 12.0-16.0 [facility] ([place]) Comment on above: Performed By: #### B 12, FES, FERR, FOL #### [address] [address] MCH (RBC) [Entitic mass] 27.0 pg Normal 27.0-31.2 [facility] ([place]) Comment on above: Performed By: #### B 12, FES, FERR, FOL #### [place] [address] MCHC 33.3 G/dL Normal 33.0-37.0 [facility] ([place]) Comment on above: Performed By: #### B 12, FES, FERR, FOL #### [place] [address] MCV (RBC) [Entitic vol] 81.1 fL Normal 80.0-94.0 [facility] ([place]) Comment on above: Performed By: #### B 12, FES, FERR, FOL #### [place] [address] Platelet 356 10 3/mcL Normal 130-400 [facility] ([place]) Comment on above: Performed By: #### B 12, FES, FERR, FOL #### [place] [address] Platelet mean volume (Bld) [Entitic vol] 8.7 fL Normal 7.4-10.4 [facility] ([place]) Comment on above: Performed By: #### B 12, FES, FERR, FOL #### [place] [address] RBC 4.30 10 6/mcL Normal 4.20-5.40 [facility] ([place]) Comment on above: Performed By: #### B 12, FES, FERR, FOL #### [place] [id number] WBC 11.8 10 3/mcL High 4.6-10.8 [facility] ([place]) Comment on above: Performed By: #### B 12, FES, FERR, FOL #### [place] [address] LABORATORYOrdered By: SYSTEM SYSTEM on 08-06-2023 Basophil, Absolute 0.1 103/mcL Normal 0.0 - 0.2 10^3/mcL AO Workflow SS Basophils/100 WBC (Bld) 0.5 % Normal 0.0 - 2.5 % AO Workflow SS Eosinophil, Absolute 0.3 103/mcL Normal 0.0 - 0 .4 10^3/mcL AO Workflow SS Eosinophils/100 WBC (Bld) 2.8 % Normal 0.0 - 7.0 % AO Workflow SS Erythrocyte distribution width (RBC) [Ratio] 16.2 % High 11.5 - 14.5 % AO Workflow SS Hematocrit (Bld) [Volume fraction] 34.8 % Low 37.0 - 47.0 % AO Workflow SS Hemoglobin (Bld) [Mass/Vol] 11.6 G/dL Low 12.0 - 16.0 G/dL AO Workflow SS Lymphocyte, Absolute 4.1 103/mcL High 0.8 - 3 .9 10^3/mcL AO Workflow SS Lymphocytes/100 WBC (Bld) 34.8 % Normal 10.0 - 50.0 % AO Workflow SS MCH (RBC) [Entitic mass] 27.0 pg Normal 27.0 - 31.2 pg AO Workflow SS MCHC 33.3 G/dL Normal 33.0 - 37.0 G/dL AO Workflow SS MCV (RBC) [Entitic vol] 81.1 fL Normal 80.0 - 94.0 fL AO Workflow SS Monocyte, Absolute 0.8 103/mcL Normal 0.2 - 1.0 10^3/mcL AO Workflow SS Monocytes/100 WBC (Bld) 6.6 % Normal 1.7 - 13.0 % AO Workflow SS Neutrophil, Absolute 6.5 103/mcL High 2.9 - 6 .2 10^3/mcL AO Workflow SS Neutrophils/100 WBC (Bld) 55.3 % Normal 37.0 - 80.0 % AO Workflow SS Platelet mean volume (Bld) [Entitic vol] 8.7 fL Normal 7.4 - 10.4 fL AO Workflow SS Platelets (Bld) [#/Vol] 356 103/mcL Normal 130 - 400 10^3/mcL AO Workflow SS RBC (Bld) [#/Vol] 4.30 106/mcL Normal 4.20 - 5.4 0 10^6/mcL AO Workflow SS WBC (Bld) [#/Vol] 11.8 103/mcL High 4.6 - 10.8 10^3/mcL AO Workflow SS GLIADon 04-26-2023 Gliadin Ab IgA <20 Normal <=19 [facility] ([place]) Comment on above: Result Comment: Glia din IgG and IgA Ab Interpretation (effective 06/08/07): Result Units Negative <20 Weak Positive 20-30 Moderate to Strong Positive >30 Both IgG and IgA antibodies to gliadin are present in most patients with celiac disease (CD). However, antibody to gliadin may be present in Crohn's disease, dermatitis herpetiformis or in subjects with no clinical evidence of intestinal disease. In healthy individuals with a family history of CD, the antibodies may precede the clinical onset of disease in approximately 25% of the subjects. Gliadin antibody levels will decrease or increase depending on the removal or reintroduction of gluten into the diet. Patients who are IgA deficient develop celiac disease more frequently than individuals who have an intact IgA system. Therefore, gliadin and transglutaminase IgA antibodies may be absent in patients with celiac disease. IgG antibodies to gliadin are especially helpful in IgA deficient patients. A negative result indicates no gliadin antibody or levels below the negative cut-off of the assay. Results of this assay should be used in conjunction with clinical findings and other serological tests. These test results were obtained with the [employer] QUANTA Lite Gliadin IgG II and Gliadin IgA II. Gliadin values obtained with different manufacturers' assay methods may not be used interchangeably. Performed By: #### B 12, FES, NELSON, OZZY #### [place] [address] Gliadin Ab IgG <20 Normal <=19 [facility] ([place]) Comment on above: Result Comment: Glia din IgG and IgA Ab Interpretation (effective 06/08/07): Result Units Negative <20 Weak Positive 20-30 Moderate to Strong Positive >30 Both IgG and IgA antibodies to gliadin are present in most patients with celiac disease (CD). However, antibody to gliadin may be present in Crohn's disease, dermatitis herpetiformis or in subjects with no clinical evidence of intestinal disease. In healthy individuals with a family history of CD, the antibodies may precede the clinical onset of disease in approximately 25% of the subjects. Gliadin antibody levels will decrease or increase depending on the removal or reintroduction of gluten into the diet. Patients who are IgA deficient develop celiac disease more frequently than individuals who have an intact IgA system. Therefore, gliadin and transglutaminase IgA antibodies may be absent in patients with celiac disease. IgG antibodies to gliadin are especially helpful in IgA deficient patients. A negative result indicates no gliadin antibody or levels below the negative cut-off of the assay. Results of this assay should be used in conjunction with clinical findings and other serological tests. These test results were obtained with the [employer] QUANTA Lite Gliadin IgG II and Gliadin IgA II. Gliadin values obtained with different manufacturers' assay methods may not be used interchangeably. Performed By: #### B 12, NELSON PÉREZ FOL #### [address] [address] ENDOon 04-23-2023 TTG Ab (IgA) <4.0 Normal <=3.9 [facility] ([place]) Comment on above: Result Comment: Effalma ctive 02/03/2023: Evaluation of Transglutaminase Ab (IgA) results: Negative: Less than 4.0 Weak positive: 4.0 to 10.0 Positive: Greater than 10.0 Transglutaminase Ab is present in approximately 95% to 100% of patients with celiac disease and 80% of patients with dermatitis herpetiformis. The antibody is rarely found in other conditions. Transglutaminase Ab levels will decrease or increase depending on the removal or reintroduction of gluten into the diet. Patients who are IgA deficient develop celiac disease more frequently than individuals who have an intact IgA system. Therefore, gliadin and transglutaminase IgA antibodies may be absent in patients with celiac disease. IgG antibodies to gliadin are especially helpful in IgA deficient patients. These test results were obtained with the [employer] QUANTA Lite R-tTG IgA JUAN CARLOS. R-tTG IgA values obtained with different manufacturers' assay methods may not be used interchangeably. Performed By: #### B 12, NELSON PÉREZ FOL #### [address] [address] CHROMAon 04-22-2023 Chromogranin A 69 ng/mL Normal <98 [facility] ([place]) Comment on above: Result Comment: This test is performed using the [employer] [id number]. Results obtained with different methods or kits cannot be used interchangeably. This test was developed and its performance characteristics determined by [facility] [place] ([facility] It has not been cleared or approved by the FDA. [facility] is regultaed under CLIA as qualified to perform high-complexity testing. This test is used for clinical purposes. It should not be regarded as investigational or for research. Performed By: [facility] [employer] [address] [place] [address] Messenger Floorperson: Rohan Rodgers III, M.D. IA#: [id number] Performed By: #### C HROMA #### [facility] [address] [place], [place] [address] #### ENDO, IGG, GLIAD, IGA #### [address] [address] [address] ABDOMEN/PELVIS W/O CONTRA STon 04-21-2023 CT ABDOMEN/PELVIS W/O CONTRAST ORIGINAL EXAMINATION: CT OF THE ABDOMEN AND PELVIS WITHOUT CONTRAST 04/21/2023 3:53 pm TECHNIQUE: CT of the abdomen and pelvis was performed without the administration of intravenous contrast. Multiplanar reformatted images are provided for review. Automated exposure control, iterative reconstruction, and/or weight based adjustment of the mA/kV was utilized to reduce the radiation dose to as low as reasonably achievable. COMPARISON: None. HISTORY: ORDERING SYSTEM PROVIDED HISTORY: Reason for Exam: flank pain, hematuria Pt c/o lt flank pain x5 days, increased urinary frequency. FINDINGS: No osseous abnormality identified. The lung bases are unremarkable. A tiny cyst is noted at the superior liver. No other liver finding. Spleen, adrenal glands and pancreas are unremarkable. Right kidney and ureter are unremarkable. At the left upper pole kidney there is a 3 mm stone seen. At the left lower pole there is an additional 3 mm stone. More inferiorly at the left lower pole, there is a 5 mm stone seen. No collecting system or ureteral dilatation is evident. There is no left ureteral stone seen. The urinary bladder is grossly normal. The solid pelvic organs are unremarkable as well. No adenopathy, free air or free fluid seen. No GI tract abnormality is identified. There is a very small fat containing umbilical hernia. No additional contributory finding. IMPRESSION: 1. Nonobstructive left nephrolithiasis. 2. No acute abnormality identified on this exam. Interpreted by: Byron Valdez MD Preliminary Report By: Byron Valdez MD Electronically signed By Byron Valdez MD Dictated Date: 04/21/2023 3:55:42 PM Prelim Date: 04/21/2023 3:58:48 PM Sign Date: 04/21/2023 3:58:48 PM Ordering Provider: QAMAR YOUNGER [facility] ([place]) IGAon 04-21-2023 IgA [Mass/Vol] 187 mg/dL Normal 40-350 [facility] ([place]) Comment on above: Result Comment: No te - New Reference Range in effect 20 Performed By: #### C HROMA #### [address] [address] #### ENDO, IGG, GLIAD, IGA #### [address] [address] IGGon 04-21-2023 IgG [Mass/Vol] 906 mg/dL Normal 650-1600 [facility] ([place]) Comment on above: Result Comment: No te - New Reference Range in effect 20 Performed By: #### C HROMA #### [address] [address] #### ENDO, IGG, GLIAD, IGA #### [address] [address] [id number] 01-30-2023 BCRABL1 p210 Interp Blood See Below Normal [facility] ([place]) Comment on above: Result Comment: BCR/ ABL1 p210 Quantitative PCR Laboratory Accession Number: [id number] Result: UNDETECTED MR: N/A %IS: N/A Interpretation: p210 BCR/ABL1 transcripts were not detected. This result does not exclude the possibility of very low level transcripts below the level of detection of this assay (>MR4.7), and a result of not detected does not exclude the possibility of other BCR/ABL1 transcripts not targeted by this assay. Methodology: The [employer] QuantideX BCR/ABL IS assay is an FDA-cleared in vitro diagnostic test for the quantitation of BCR/ABL1 and ABL1 transcripts in total RNA from whole blood of diagnosed t(9;22) positive chronic myeloid leukemia patients expressing e13a2 and/or e14a2 fusion transcripts. This test does not detect p190 (e1a2) or other rare BCR/ABL1 transcripts. This assay has a limit of quantification and limit of detection of 0.002% IS or MR4.7. References: 1) Marlee et al, Blood 2006;108:28-37; Gera et al, Leukemia 2015;29:999-1003 As reviewed by Loida Bernardo, PhD, [facility] Performed By: [facility] [address] [place] [address]. [place] [address] Messenger Floorperson: Rohan Rodgers III, M.D. CLIA#: [id number] Performed By: #### B 12, FES, FERR, FOL #### [place] [address] BCRABL1 p210 MR N/A Normal [facility] ([place]) Comment on above: Result Comment: Perf ormed By: [facility] [employer] [address] [place] [address] Messenger Floorperson: Rohan Rodgers III, M.D. CLIA#: [id number] Performed By: #### B 12, FES, FERR, FOL #### [place] [address] BCRABL1 p210% IS N/A Normal [facility] ([place]) Comment on above: Result Comment: Perf ormed By: [facility] [employer] [address] [place] [address] Messenger Floorperson: Rohan Rodgers III, M.D. CLIA#: [id number] Performed By: #### B 12, FES, FERR, FOL #### [place] [address] CRPon 01-28-2023 C-Reactive Protein 3.1 mg/dL High 0.0-0.9 [facility] ([place]) Comment on above: Performed By: #### B 12, FES, FERR, FOL #### [place] [address] ESRon 01-28-2023 Erythrocyte Sed Rate 18 mm/hr Normal 0-20 [facility] ([place]) Comment on above: Performed By: #### B 12, FES, NELSON, OZZY #### [facility] [address] [place] [id number] LABORATORYOrdered By: SYSTEM SYSTEM on 01-28-2023 CRP [Mass/Vol] 3.1 mg/dL Invalid Interpretation Code 0.0 - 0.9 mg/dL AO ADM SS LABORATORYOrdered By: Cristi Pierre on 01-28-2023 ESR Photometric method (Bld) [Velocity] 18 mm/hr Invalid Interpretation Code 0 - 20 mm/hr AO Man Heme SS URINE CULTUREon 02-01-2018 Bacteria identified Cx Nom (U) URINE RESULT 60-70,000 COL/ML MIXED AARTI-PLEASE REPEAT-POSSIBLE CONTAMIN Normal [facility] Comment on above: Order Comment: Campu s: MAS DIPSTICKon 01-30-2018 Bilirubin.direct mass conc 1.0 mg/dL Normal NEGATIVE [facility] Comment on above: Order Comment: Campu s: MAS POC APPEARANCE CLEAR Normal CLEAR [facility] Comment on above: Order Comment: Campu s: MAS POC BLOOD Negative Normal NEGATIVE [facility] Comment on above: Order Comment: Campu s: [facility] POC COLOR YELLOW Normal [facility] Comment on above: Order Comment: Campu s: MAS POC KETONE Negative Normal NEGATIVE [facility] Comment on above: Order Comment: Campu s: MAS POC LEUK EST 500 RODDY/uL Normal NEGATIVE [facility] Comment on above: Order Comment: Campu s: MAS POC NITRITE Negative Normal NEGATIVE [facility] Comment on above: Order Comment: Campu s: MAS POC SPEC GRAV 1.015 Normal 1.005-1.030 [facility] Comment on above: Order Comment: Campu s: MAS POC UA GLUCOSE NORMAL Normal NORMAL [facility] Comment on above: Order Comment: Campu s: MAS POC UA PH 7.0 Normal 5-6 [facility] Comment on above: Order Comment: Campu s: MAS POC UROBIL 1.0 MG/DL Normal NORMAL [facility] Comment on above: Order Comment: Campu s: DEBORAH Protein mass conc Negative Normal NEGATIVE [facility] Comment on above: Order Comment: Gayla reynold: DEBORAH CONNERcarito 01-30-2018 [facility] REPORT Normal [facility] DATE OF SERVICE: 01/30/2018REASON FOR VISIT: Burning urination.HISTORY OF PRESENT ILLNESS: This is a 27-year-old female with history of burningurination since last night, mild low backache. No fever or chills. Review of othersystems normal.PAST MEDICAL HISTORY, FAMILY HISTORY, SOCIAL HISTORY: Reviewed.ALLERGIES: CODEINE.MEDICATIONS: Reviewed.PHYSICAL EXAMINATION: General: She is awake, alert, not in distress, no dyspnea.Vital Signs: Temperature is 98.7, blood pressure 156/97, pulse 120, respiratory rate16, pulse oximetry 98%, pain score 1-2/10. She was made aware of her high bloodpressure. HEENT: Unremarkable. Chest: Clear to auscultate. Heart: Regular rateand rhythm. No CVA tenderness. Abdomen is benign.LABORATORY: Urine dip was significantly positive for leukocyte esterase.ASSESSMENT: Urinary tract infection.PLAN: Clinical findings were discussed with the patient in detail. I gave herMacrobid 100 mg twice a day for 5 days with no refill. Will send her urine forculture. She should drink lots of fluids, Tylenol as needed, and follow [facility] for continuation of care. Patient understands and agrees. KATJA Amato/[id number]: 01/30/2018 19:01DT: 01/31/2018 11:37SSI File#: [id number] #: [id number]: Lynn Hughes MDVerified/Reviewed by03/10/18 1119 PAWPR [facility] PATIENT NAME: NADIA SARKAR [id number] [facility] [address] [place] MEDICAL REC #: [id number], [place] [id number] [facility] REPORT [facility] Normal [facility] [place] Encounters Encounter Date Encounter Type Care Provider Facility Start: 03-25-2024 End: 03-25-2024 ambulatory POOL WILSON MD Facility:A Start: 03-19-2024 End: 03-19-[address] NATHALY ROMERO DO Facility:[facility] Start: 03-19-2024 End: 03-19-2024 Patient encounter procedure POOL WILSON MD [facility] Start: 12-10-2023 End: 12-10-[address] NATHALY ROMERO DO Facility:A Start: 12-10-2023 End: 12-10-2023 Patient encounter procedure POOL WILSON MD [facility] Start: 11-28-2023 End: 11-28-[address] NATHALY ROMERO DO Facility:B Start: 08-11-2023 End: 08-11-2023 ambulatory POOL WILSON MD Facility:A Start: 08-11-2023 End: 08-11-2023 Patient encounter procedure POOL WILSON MD [facility] Start: 08-06-2023 End: 08-06-[address] NATHALY ROMERO DO Facility:B Start: 08-06-2023 End: 08-06-2023 Patient encounter procedure POOL WILSON MD [facility] Start: 04-21-2023 End: 04-21-[address] NATHALY ROMERO DO Facility:B Start: 04-19-2023 End: 04-23-[address] NATHALY ROMERO DO Facility:B Start: 02-05-2023 End: 02-05-[address] NATHALY ROMERO DO Facility:A Start: 01-28-2023 End: 01-28-[address] NATHALY ROMERO DO Facility:B Start: 01-28-2023 End: 01-28-2023 Patient encounter procedure POOL WILSON MD [facility] Start: 01-30-2018 Patient encounter Lynn Pringle lity:[facility] Procedures Date Procedure Procedure Detail Performing Clinician Start: 06-19-2023 Kidney stone (disorder) POOL Garrison Comment on above: REMOVAL Start: 04-04-2023 Colonoscopy POOL WILSON MD Start: 03-14-2023 Esophagogastroduodenoscopy POOL Aragon MD Start: 12-28-2020 Echocardiography POOL WILSON MD Start: 12-22-2020 Electrocardiographic monitor and recorder, device (physical object) POOL WILSON MD Comment on above: 48 hour Start: 03-14-2013 Extraction of wisdom tooth POOL Aragon MD Start: 07-14-1998 Uterine structure (body structure) SHORTY WILSON MD Comment on above: uterine tear d/t injury Start: 07-14-1995 Tonsillectomy POOL WILSON MD Immunizations Immunization Date Immunization Notes Care Provider Fa [facility] 04-24-2023 influenza, injectabl e, quadrivalent, contains preservative; Translations: [Fluarix PF Quadrivalent ] POOL WILSON MD [facility] [place] 04-24-2023 tetanus toxoid, redu maryam diphtheria toxoid, and acellular pertussis vaccine, adsorbed; Translations: [Boostrix (Tdap)] POOL WILSON MD [facility] 04-28-2021 SARS-CoV-2 mRNA (tozinameran) vaccine POOL WILSON MD [facility] Comment on above: Result Comment: 2021: TPVALL 04-05-2021 SARS-CoV-2 mRNA (tozinameran) vaccine POOL WILSON MD [facility] Comment on above: Result Comment: 2021: TPVALL 12-30-2008 meningococcal polysaccharide (groups A, C, Y and W-135) diphtheria toxoid conjugate vaccine (MCV4P) POOL WILSON MD [facility] 12-30-2008 tetanus toxoid, redu maryam diphtheria toxoid, and acellular pertussis vaccine, adsorbed POOL WILSON MD [facility] 02-10-2004 hepatitis B vaccine, unspecified formulation POOL WILSON MD [facility] 04-29-2003 hepatitis B pediatri c vaccine POOL WILSON MD [facility] 02-21-2003 hepatitis B pediatri c vaccine POOL WILSON MD [facility] 02-21-2003 measles/mumps/rubell a virus vaccine POOL WILSON MD [facility] 11-06-1995 diphtheria and tetan us toxoids, adsorbed for pediatric use POOL WILSON MD [facility] 11-06-1995 poliovirus vaccine, inactivated POOL WILSON MD [facility] 02-18-1995 diphtheria and tetan us toxoids, adsorbed for pediatric use POOL WILSON MD [facility] 04-27-1991 haemophilus influenz ae type b vaccine, PRP-T conjugate POOL WILSON MD [facility] 04-27-1991 measles/mumps/rubell a virus vaccine POOL WILSON MD [facility] 04-27-1991 poliovirus vaccine, inactivated POOL WILSON MD [facility] 01-01-1990 diphtheria and tetan us toxoids, adsorbed for pediatric use POOL WILSON MD [facility] 1989 diphtheria, tetanus toxoids and acellular pertussis vaccine POOL WILSON MD [facility] 1989 poliovirus vaccine, inactivated POOL WILSON MD [facility] 1989 diphtheria, tetanus toxoids and acellular pertussis vaccine POOL WILSON MD [facility] 1989 poliovirus vaccine, inactivated POOL WILSON MD [facility] Payers Date Payer Category Payer Unknown [id number] 1989 Unknown [id number] 2.16.8 [id number] 1989 Unknown [id number] 2.16.8 [id number] 1989 Unknown [id number] 2.16.8 [id number] 1989 Unknown [id number] 2.16.8 [id number] 1989 Unknown [id number] 2.16.8 [id number] 1989 Unknown [id number] 2.16.8 [id number] 1989 Unknown [id number] 2.16.8 [id number] 1989 Unknown [id number] 2.16.8 [id number] 1989 Unknown [id number] 2.16.8 [id number] 1989 Unknown [id number] 2.16.8 [id number] 1989 Unknown [id number] 2.16.8 [id number] 1989 Unknown [id number] 2.16.8 [id number] Unknown [id number] Social History Date Type Detail Facility Start: 09-13-2021 End: 08-11-2023 Tobacco smoking status Never smoked tobacco (finding) [facility] Sex Assigned At Sex [facility] Clinical Note 04-20-2023 Note Date & Type Note Facility 04-20-2023 Note . MICRO - Microbiology PROCEDURE: Urine Culture [*1] SOURCE: Urine, Clean Catch BODY SITE: COLLECTED DATE/TIME: 04/19/2023 09:18 EDT RECEIVED DATE/TIME: 04/19/2023 14:54 EDT START DATE/TIME: 04/19/2023 14:54 EDT FREE TEXT SOURCE: FINAL REPORTS Final Report [] Verified Date/Time/Personnel: 04/20/2023 15:56 EDT 10,000 - 50,000 cfu/ml Mixed growth consistent with normal urogenital aarti. Performing Locations *1: This test was performed at: [facility], [address] [place] [address], [facility] , [facility] ([place]) Evaluation + Plan note Note Date & Type Note Facility Evaluation + Plan note Future Appointments Appointment Date:02/05/2023 04:00:00 PM Scheduled Provider: Location:[facility] Appointment Type:Telephone Appointment Date:04/24/2023 08:00:00 AM Scheduled Provider:NATHALY ROMERO DO Location:[facility] Appointment Type:PC Wellness Annual Diagnostic Tests PendingBCR/ABL p210 Quant Blood 01/28/23 [facility] Evaluation + Plan note Note Date & Type Note Facility Evaluation + Plan note Future Appointments Appointment Date:08/11/2023 08:30:00 AM Scheduled Provider: Location:[facility] Appointment Type:[facility] OV Follow Up [facility] Evaluation + Plan note Laboratory Note Date & Type Note Facility Evaluation + Plan note Future Appointments Appointment Date:12/10/2023 03:30:00 PM Scheduled Provider: Location:[facility] Appointment Type:[facility] OV Follow Up Future Scheduled TestsFerritin 12/10/23Vitamin B12 Level 12/10/23Complete Blood Count 12/10/23Iron Studies 12/10/23 [facility] Evaluation + Plan note Laboratory Note Date & Type Note Facility Evaluation + Plan note Future Appointments Appointment Date:03/08/2024 03:00:00 PM Scheduled Provider: Location:[facility] Appointment Type:[facility] OV Follow Up Appointment Date:05/27/2024 08:30:00 AM Scheduled Provider:NATHALY ROMERO DO Location:[facility] Appointment Type:PC OV Future Scheduled TestsFerritin 03/11/24Vitamin B12 Level 03/11/24Complete Blood Count 03/11/24Lipid Profile 12/26/23Iron Studies 03/11/24Complete Metabolic Panel 12/26/23 [facility] Evaluation + Plan note Note Date & Type Note Facility Evaluation + Plan note Future Appointments Appointment Date:03/25/2024 10:30:00 AM Scheduled Provider:POOL WILSON MD Location:[facility] Appointment Type:[facility] OV Follow Up Appointment Date:05/27/2024 08:30:00 AM Scheduled Provider:NATHALY RMOERO DO Location:[facility] Appointment Type:PC OV [facility] Hospital course Narrative Note Date & Type Note Facility Hospital course Narrative No data available for this section [facility] Hospital Discharge instructions Note Date & Type Note Facility Hospital Discharge instructions No data available for this section [facility] Progress note Note Date & Type Note Facility Progress note No data available for this section [facility] Summary Purpose Family History No Family History Records Found No data available for this section No data available for this section No data available for this section No data available for this section No Family History Records Found No data available for this section No data available for this section No Family History Records FoundNo Family History Records Found Advance Directives No Advanced Directives Records FoundNo Advanced Directives Records FoundNo Advanced Directives Records FoundNo Advanced Directives Records Found Additional Source Comments INFORMATION SOURCE (unrecogn ized section and content) DATE CREATED AUTHOR 03/13/2018 [facility] DATE CREATED AUTHOR AUTHOR'S ORGANIZ ATION 01/12/2024 [facility] ([place] DATE CREATED AUTHOR AUTHOR'S ORGANIZ ATION 03/20/2024 [facility] DATE CREATED AUTHOR AUTHOR'S ORGANIZ ATION 05/02/2024 [facility] Patient Care team informatio n (unrecognized section and content) Care Team Personnel Name: NATHALY ROMERO DO Position: P4 Physician - Primary Care Member Role: Primary Care Physician Address: Address: [address] [place] [phone]- Care Team Related Persons Name: SIRIA SARKAR Address: Home [address] [place], [place] [phone] Care Team Personnel Name: NATHALY ROMERO DO Position: P4 Physician - Primary Care Member Role: Primary Care Physician Address: Address: [address] [place] [phone]- Care Team Related Persons Name: SIRIA SARKAR Address: Home [address] [place] [phone] Care Team Personnel Name: NATHALY ROMERO DO Position: P4 Physician - Primary Care Member Role: Primary Care Physician Address: Address: [address] [place] [address] Care Team Related Persons Name: SIRIA SARKAR Address: Home [address] [place] [phone] Care Team Personnel Name: NATHALY ROMERO DO Position: P4 Physician - Primary Care Member Role: Primary Care Physician Address: Address: [address] [place] [address] Care Team Related Persons Name: SIRIA SARKAR Address: Home [address] [place] [phone] Care Team Personnel Name: NATHALY ROMERO DO Position: P4 Physician - Primary Care Member Role: Primary Care Physician Address: Address: [address] [place] [address] Care Team Related Persons Name: SIRIA SARKAR Address: Home [address] [place] [phone] Care Team Personnel Name: NATHALY ROMERO DO Position: P4 Physician - Primary Care Member Role: Primary Care Physician Address: Address: [address] [place] [address] Care Team Related Persons Name: SIRIA SARKAR Address: Home [address] [place] [phone] FOR RECORDS PERTAINING TO PATIENTS WHO ARE OR HAVE BEEN ENROLLED IN A CHEMICAL DEPENDENCY/SUBSTANCEABUSE PROGRAM, SOME INFORMATION MAY BE OMITTED. This clinical summary was aggregated from multiple sources. Caution should be exercised in using it in the provision of clinical care. This summary normalizes information from multiple sources, and as a consequence, information in this document may materially change the coding, format and clinical context of patient data. In addition, data may be omitted in some cases. CLINICAL DECISIONS SHOULD BE BASED ON THE PRIMARY CLINICAL RECORDS. [facility] provides no warranty or guarantee of the accuracy or completeness of information in this document.
== END | disposition home or self-care (01) ==
PROVIDERS: PCP Student in an Organized Health Care Education/Training Program; Referring Provider Urology; Visit Provider Urology
DX: N20.0 Calculus of kidney (principal)